=== PATIENT | female | born 1985 | race American Indian/Alaskan Native ===

== ENCOUNTER 2021-05-03 22:58 | Inpatient (IN) | payer SELFPAY ==
[2021-05-03] MEDS ORDERED: LORazepam 2 MG/ML VIAL ONE ×2 (23:12→23:43)
[2021-05-03] MEDS ORDERED: LORazepam 2 MG/ML VIAL IM ONE ×2 (23:25→23:32)
[2021-05-03] MEDS ORDERED: KETAMINE 500 MG/5 ML VIAL MDV ONE (23:35)
[2021-05-03] MEDS ORDERED: KETAMINE 500 MG/5 ML VIAL MDV IM ONE (23:35)
[2021-05-03] MEDS ORDERED: MAGNESIUM SULFATE 40GM/1000ML 40 GM/1,000 ML BAG IV SCH (23:45)
[2021-05-03] MEDS ORDERED: MAGNESIUM SULFATE 4 GM/100 ML BAG IV ONE (23:49)
[2021-05-04] MEDS ORDERED: SODIUM CHLORIDE 0.9% 1000 ML 2,000 ML ONE (00:01)
--- NOTE | 2021-05-04 00:40 | Emergency Department Report ---
<STUART PATRICK - Last Filed: 05/04/21 01:35> ED Seizure HPI - General Chief Complaint: Seizure Stated Complaint: Eclampsia Time Seen by Provider: 05/03/21 23:19 Source: EMS Mode of arrival: Stretcher Limitations: No Limitations - History of Present Illness Initial Comments: 35-year-old female G6, P5 presents to the hospital 1 week with seizure. Upon arrival patient is seizing with a EMS therefore history obtained from EMS. They states that patient delivered at [facility] and did not have any care. She had preeclampsia at time of delivery. She is not currently on any medications. She had 1 seizure at home witnessed by family. She was postictal upon EMS arrival. Patient was alert and oriented with GCS of 15 by time of ED arrival but seized shortly after ED arrival. No IV access was obtained in route. Patient was administered 2 mg of intranasal Ativan by transporting ambulance crew and transferred to a room for treatment. mom Cecily Zavala ay [phone] Per mom pt went to the hospital because her water broke. she is unsure if pt had care. she showed evidence of preeclampisia after delivery (not before) so they kept her an extra day. Pt had an epidural and was having headache in the occipital and neck area. Pt had persistent headache since. Pt had her first seizure today witness. No previous history of seizures. - Related Data Allergies Allergy/AdvReac Type Severity Reaction Status Date / Time latex Allergy Hives Verified 05/03/21 23:09 ED Review of Systems Comment: Unobtainable due to pts medical conditions ED Past Medical Hx - Past Medical History Previous Medical History?: No ED Physical Exam - General Limitations: No Limitations - Other Other exam information: General: No acute distress Head: Atraumatic Eyes: normal appearance ENT: Moist mucous membranes Neck: Normal appearance, no midline tenderness Chest: Clear to auscultation bilaterally CV: Regular rate and rhythm Abdomen: Soft, normal bowel sounds, nontender, nondistended, no rebound or guarding Back: Normal inspection Extremity: Normal inspection, full range of motion Neuro: Patient have a tonic-clonic seizures upon arrival followed by postictal postictal state with extreme combativeness. 5/5 upper lower extremity strength Psych: Appropriate behavior Skin: No rash ED Course - Reevaluation(s) Reevaluation #1: 05/04/21 00:38 I greeted EMS at the door during patient's seizure activity and instructed them to administer 2 mg of intranasal Ativan. Patient was immediately transferred to the room and was extremely combative requiring multiple people to restrain her in multiple physical restraints. She was administered an additional Ativan 2 mg IM without significant sedation. Multiple IV attempts failed due to patient's body habitus and combativeness. Patient received ketamine IM with gradual sedation achieved. During this time peripheral IV access was placed in the left hand. Right EJ was attempted prior to ketamine however, it infiltrated. Left EJ was placed after ketamine with return of blood however, with IV infusion it appeared to be infiltrated. Patient systolic blood pressure also dropped in the 80s therefore patient prepped for central line placement. Right femoral line placed for definitive IV access and aggressive IV fluid hydration. During femoral line placement patient's mental status improving and it was explained w here she was and why she is here. She apologized for her combative behavior and is very pleasant. I was at the bedside during patient's initial resuscitation efforts 05/04/21 01:27 Reevaluation #2: 05/04/21 01:17 room air sat 95% at rest - Consultations Consultation #1: 05/04/21 01:09 Discussed with TEXTILE SLITTING MACHINE OPERATOR on-call Dr. Lua who advises to add on a urine total protein and urine creatinine to requested UA to help differentiate between eclampsia versus primary seizure disorder. I informed him that patient is being treated for both until diagnosis is clear. Patient is awaiting CT head and urine collection. Case signed out to my colleague Dr. Cortes to follow-up results and recontact TEXTILE SLITTING MACHINE OPERATOR for admission. Patient may require hospitalist admission based on lack of staffing on the TEXTILE SLITTING MACHINE OPERATOR cesar, patient's COVID status, and if primary seizure disorder is favored over preeclampsia - Central Line Placement Right Femoral Consent Obtained: emergent situation Time Out Performed: Yes Patient Placed on Monitor/Pulse Ox: Yes MD Prep: mask, gown, gloves Central Line Prep: Chlorhexidine scrub, sterile drapes applied Local Anesthesia Used: Lidocaine 1% Amount of Anesthesia Used (mls): 5 Ultrasound Used for Placement: No Central Line Lumen Inserted: triple Reason for Insertion: Emergency Venous Access Bloods Obtained for Lab: No Central Line Position: good blood return, sutured in place with nyl Dressing Applied: Tegaderm Patient Tolerated Procedure: well - EJ/Peripheral Line Neck L Time Out Performed: Yes Indications: nurses unable to establis Skin Cleansed in Sterile Fashion: Yes Size: 20 Dressing Placed: Tegaderm Patient Tolerated Procedure: other (infiltrated) Neck R Time Out Performed: Yes Indications: nurses unable to establis Skin Cleansed in Sterile Fashion: Yes Size: 20 Patient Tolerated Procedure: other (infiltrated) ED Medical Decision Making - Lab Data Result diagrams: 05/04/21 00:07 05/04/21 00:07 - Radiology Data Radiology results: report reviewed CHEST 1 VIEW INDICATION / CLINICAL INFORMATION: multiple seizures. COMPARISON: None available. FINDINGS: SUPPORT DEVICES: None. HEART / MEDIASTINUM: No significant abnormality. LUNGS / PLEURA: Suboptimal inspiration. There are pulmonary opacities scattered throughout the right lung. I suspect there are pulmonary opacities within the left lung as well. No large pleural effusion. No pneumothorax. ADDITIONAL FINDINGS: No significant additional findings. IMPRESSION: 1. Scattered bilateral pulmonary opacities. Most likely etiology is viral pneumonia. Please correlate with patient's Covid status. - Medical Decision Making Patient required aggressive resuscitation and stabilization secondary to combativeness without IV access and seizure activity. I greeted EMS at the door during patient's seizure activity and instructed them to administer 2 mg of intranasal Ativan. Patient was immediately transferred to the room and was extremely combative requiring multiple people to restrain her in multiple physical restraints. She was administered an additional Ativan 2 mg IM without significant sedation. Multiple IV attempts failed due to patient's body habitus and combativeness. Patient received ketamine IM with gradual sedation achieved. During this time peripheral IV access was placed in the left hand. Right EJ was attempted prior to ketamine however, it infiltrated. Left EJ was placed after ketamine with return of blood however, with IV infusion it appeared to be infiltrated. Patient systolic blood pressure also dropped in the 80s therefore patient prepped for central line placement. Right femoral line placed for definitive IV access and aggressive IV fluid hydration. During femoral line placement patient's mental status improving and it was explained where she was and why she is here. She apologized for her combative behavior and is very pleasant. I was at the bedside during patient's prolonged resuscitation and stabilization efforts. Spoke to on-call TEXTILE SLITTING MACHINE OPERATOR MD and additional orders placed. He will be recounted by my colleague after pending orders result Blood pressure improved after IV fluid bolus and magnesium bolus and drip initiated. Patient satting 95% on room air although x-ray shows infiltrates with hx of covid. Patient treated with antibiotics for pneumonia. Patient does have an anion gap metabolic acidosis likely secondary to seizure activity. Lactic acid has been ordered. iv potassium ordered for mild hypokalemia at time of disposition ekg, urine collection and CT pending DR Cortes to follow and dispo Critical Care Time: Yes Critical care time in (mins) excluding proc time.: 75 Critical Care Time: 75 Minutes of critical care time excluding procedures were used in the care of the patient. I came immediately to the bedside upon patient's arrival. I obtained history from EMS at the bedside. I discussed treatment plan with the nursing team members. I reviewed electronic record (no previous record). I spoke with family to obtain medical history. Patient required multiple interventions and reassessments. Spoke with hospitalist and consultants in order to expedite care. ED Disposition Clinical Impression: Pre-eclampsia, , Hypokalemia, Elevated LFTs, Pneumonia due to COVID- 19 virus, Seizure, High anion gap metabolic acidosis Disposition: ADMITTED INPATIENT Condition: Serious Instructions: Bacterial Pneumonia (ED), Hypertension (ED) <CJ CORTES S - Last Filed: 05/04/21 05:39> ED Review of Systems ROS: Stated complaint: Eclampsia Other details as noted in HPI ED Course Vital Signs 05/03/21 05/03/21 05/03/21 20:53 21:00 21:15 Temperature Pulse Rate Respiratory 23 24 22 Rate Blood Pressure 109/70 109/70 116/56 Blood Pressure [Left] O2 Sat by Pulse 99 99 98 Oximetry 05/03/21 05/03/21 05/03/21 23:03 23:20 23:40 Temperature 98.3 F Pulse Rate 98 H 105 H Respiratory 16 26 H Rate Blood Pressure 116/56 116/56 Blood Pressure 140/60 [Left] O2 Sat by Pulse 98 86 Oximetry 05/03/21 05/04/21 05/04/21 23:46 00:00 00:15 Temperature Pulse Rate 120 H 116 H Respiratory 37 H 29 H Rate Blood Pressure 116/56 102/45 96/36 Blood Pressure [Left] O2 Sat by Pulse 100 100 100 Oximetry 05/04/21 05/04/21 05/04/21 00:30 00:46 01:01 Temperature Pulse Rate 104 H 110 H 105 H Respiratory 21 17 22 Rate Blood Pressure 96/36 95/41 105/46 Blood Pressure [Left] O2 Sat by Pulse 96 96 93 Oximetry 05/04/21 05/04/21 05/04/21 01:15 01:31 01:45 Temperature Pulse Rate 99 H 92 H 89 Respiratory 28 H 29 H 30 H Rate Blood Pressure 113/57 105/40 98/49 Blood Pressure [Left] O2 Sat by Pulse 92 94 91 Oximetry 05/04/21 05/04/21 05/04/21 02:01 02:15 02:31 Temperature Pulse Rate 86 82 74 Respiratory 27 H 27 H 25 H Rate Blood Pressure 94/46 94/46 101/52 Blood Pressure [Left] O2 Sat by Pulse 94 94 97 Oximetry 05/04/21 05/04/21 05/04/21 02:45 03:01 03:15 Temperature Pulse Rate 79 77 72 Respiratory 26 H 24 23 Rate Blood Pressure 100/47 100/47 100/47 Blood Pressure [Left] O2 Sat by Pulse 95 96 97 Oximetry 05/04/21 05/04/21 05/04/21 03:31 03:45 04:09 Temperature Pulse Rate 65 81 Respiratory 22 20 Rate Blood Pressure 114/47 104/52 111/50 Blood Pressure [Left] O2 Sat by Pulse 99 95 97 Oximetry 05/04/21 05/04/21 05/04/21 04:15 04:31 04:45 Temperature Pulse Rate 81 82 Respiratory 27 H 20 Rate Blood Pressure 111/50 102/50 102/50 Blood Pressure [Left] O2 Sat by Pulse 94 97 98 Oximetry 05/04/21 05/04/21 05/04/21 05:00 05:15 05:31 Temperature Pulse Rate 85 67 67 Respiratory 16 20 22 Rate Blood Pressure 96/72 96/72 98/52 Blood Pressure [Left] O2 Sat by Pulse 96 97 96 Oximetry ED Medical Decision Making - Lab Data Result diagrams: 05/04/21 00:07 05/04/21 00:07 Lab Results 05/03/21 05/04/21 05/04/21 Range/Units 02:45 00:07 00:07 WBC 10.7 (4.5-11.0) K/mm3 RBC 4.89 (3.65-5.03) M/mm3 Hgb 12.0 (10.1-14.3) gm/dl Hct 39.2 (30.3-42.9) % MCV 80 (79-97) fl MCH 25 L (28-32) pg MCHC 31 (30-34) % RDW 14.8 (13.2-15.2) % Plt Count 254 (140-440) K/mm3 Add Manual Diff Complete Total Counted 100 Seg Neuts % (Manual) 82.0 H (40.0-70.0) % Band Neutrophils % 3.0 % Lymphocytes % (Manual) 7.0 L (13.4-35.0) % Reactive Lymphs % (Man) 0 % Monocytes % (Manual) 8.0 H (0.0-7.3) % Eosinophils % (Manual) 0 (0.0-4.3) % Basophils % (Manual) 0 (0.0-1.8) % Metamyelocytes % 0 % Myelocytes % 0 % Promyelocytes % 0 % Blast Cells % 0 % Nucleated RBC % 1.0 H (0.0-0.9) % Seg Neutrophils # Man 8.8 H (1.8-7.7) K/mm3 Band Neutrophils # 0.3 K/mm3 Lymphocytes # (Manual) 0.7 L (1.2-5.4) K/mm3 Abs React Lymphs (Man) 0.0 K/mm3 Monocytes # (Manual) 0.9 H (0.0-0.8) K/mm3 Eosinophils # (Manual) 0.0 (0.0-0.4) K/mm3 Basophils # (Manual) 0.0 (0.0-0.1) K/mm3 Metamyelocytes # 0.0 K/mm3 Myelocytes # 0.0 K/mm3 Promyelocytes # 0.0 K/mm3 Blast Cells # 0.0 K/mm3 WBC Morphology Not Reportable Hypersegmented Neuts Not Reportable Hyposegmented Neuts Not Reportable Hypogranular Neuts Not Reportable Smudge Cells Not Reportable Toxic Granulation Not Reportable Toxic Vacuolation Not Reportable Dohle Bodies Not Reportable Pelger-Huet Anomaly Not Reportable Zane Rods Not Reportable Platelet Estimate Consistent w auto Clumped Platelets Not Reportable Plt Clumps, EDTA Not Reportable Large Platelets Few Giant Platelets Not Reportable Platelet Satelliting Not Reportable Plt Morphology Comment Not Reportable RBC Morphology Not Reportable Dimorphic RBCs Not Reportable Polychromasia Not Reportable Hypochromasia 1+ Poikilocytosis Not Reportable Anisocytosis 1+ Microcytosis Not Reportable Macrocytosis Not Reportable Spherocytes Not Reportable Pappenheimer Bodies Not Reportable Sickle Cells Not Reportable Target Cells Not Reportable Tear Drop Cells Not Reportable Ovalocytes Not Reportable Helmet Cells Not Reportable Jin-[place] Bodies Not Reportable [place] Rings Not Reportable Isabel Cells Not Reportable Bite Cells Not Reportable Crenated Cell Not Reportable Elliptocytes Not Reportable Acanthocytes (Spur) Not Reportable Rouleaux Not Reportable Hemoglobin C Crystals Not Reportable Schistocytes Not Reportable Malaria parasites Not Reportable Andrews Bodies Not Reportable Hem Pathologist Commnt No Sodium 141 (137-145) mmol/L Potassium 3.2 L (3.6-5.0) mmol/L Chloride 101.8 (98-107) mmol/L Carbon Dioxide 11 L (22-30) mmol/L Anion Gap 31 mmol/L BUN 11 (7-17) mg/dL Creatinine 0.9 (0.6-1.2) mg/dL Estimated GFR > 60 ml/min BUN/Creatinine Ratio 12 % Glucose 173 H (65-100) mg/dL Lactic Acid (0.7-2.0) mmol/L Uric Acid 8.7 H (3.5-7.6) mg/dL Calcium 8.2 L (8.4-10.2) mg/dL Magnesium (1.7-2.3) mg/dL Total Bilirubin 0.30 (0.1-1.2) mg/dL Direct Bilirubin < 0.2 (0-0.2) mg/dL Indirect Bilirubin 0.1 mg/dL AST 69 H (5-40) units/L ALT 81 H (7-56) units/L Alkaline Phosphatase 211 H (35-129) units/L Lactate Dehydrogenase 444 H (91-180) units/L Total Protein 7.3 (6.3-8.2) g/dL Albumin 3.4 L (3.9-5) g/dL Albumin/Globulin Ratio 0.9 % Urine Color Yellow (Yellow) Urine Turbidity Clear (Clear) Urine pH 5.0 (5.0-7.0) Ur Specific [place] 1.016 (1.003-1.030) Urine Protein 30 mg/dl (Negative) mg/dL Urine Glucose (UA) Neg (Negative) mg/dL Urine Ketones 20 (Negative) mg/dL Urine Blood Mod (Negative) Urine Nitrite Neg (Negative) Urine Bilirubin Neg (Negative) Urine Urobilinogen < 2.0 (<2.0) mg/dL Ur Leukocyte Esterase Neg (Negative) Urine WBC (Auto) 3.0 (0.0-6.0) /HPF Urine RBC (Auto) 4.0 (0.0-6.0) /HPF U Epithel Cells (Auto) 1.0 (0-13.0) /HPF Urine Mucus Few /HPF Urine Creatinine (0.1-20.0) mg/dL Urine Total Protein (5-11.8) mg/dL 05/04/21 05/04/21 05/04/21 Range/Units 00:07 01:14 02:45 WBC (4.5-11.0) K/mm3 RBC (3.65-5.03) M/mm3 Hgb (10.1-14.3) gm/dl Hct (30.3-42.9) % MCV (79-97) fl MCH (28-32) pg MCHC (30-34) % RDW (13.2-15.2) % Plt Count (140-440) K/mm3 Add Manual Diff Total Counted Seg Neuts % (Manual) (40.0-70.0) % Band Neutrophils % % Lymphocytes % (Manual) (13.4-35.0) % Reactive Lymphs % (Man) % Monocytes % (Manual) (0.0-7.3) % Eosinophils % (Manual) (0.0-4.3) % Basophils % (Manual) (0.0-1.8) % Metamyelocytes % % Myelocytes % % Promyelocytes % % Blast Cells % % Nucleated RBC % (0.0-0.9) % Seg Neutrophils # Man (1.8-7.7) K/mm3 Band Neutrophils # K/mm3 Lymphocytes # (Manual) (1.2-5.4) K/mm3 Abs React Lymphs (Man) K/mm3 Monocytes # (Manual) (0.0-0.8) K/mm3 Eosinophils # (Manual) (0.0-0.4) K/mm3 Basophils # (Manual) (0.0-0.1) K/mm3 Metamyelocytes # K/mm3 Myelocytes # K/mm3 Promyelocytes # K/mm3 Blast Cells # K/mm3 WBC Morphology Hypersegmented Neuts Hyposegmented Neuts Hypogranular Neuts Smudge Cells Toxic Granulation Toxic Vacuolation Dohle Bodies Pelger-Huet Anomaly Zane Rods Platelet Estimate Clumped Platelets Plt Clumps, EDTA Large Platelets Giant Platelets Platelet Satelliting Plt Morphology Comment RBC Morphology Dimorphic RBCs Polychromasia Hypochromasia Poikilocytosis Anisocytosis Microcytosis Macrocytosis Spherocytes Pappenheimer Bodies Sickle Cells Target Cells Tear Drop Cells Ovalocytes Helmet Cells Jin-[place] Bodies [place] Rings [place] Cells Bite Cells Crenated Cell Elliptocytes Acanthocytes (Spur) Rouleaux Hemoglobin C Crystals Schistocytes Malaria parasites Andrews Bodies Hem Pathologist Commnt Sodium (137-145) mmol/L Potassium (3.6-5.0) mmol/L Chloride (98-107) mmol/L Carbon Dioxide (22-30) mmol/L Anion Gap mmol/L BUN (7-17) mg/dL Creatinine (0.6-1.2) mg/dL Estimated GFR ml/min BUN/Creatinine Ratio % Glucose (65-100) mg/dL Lactic Acid 4.60 H* (0.7-2.0) mmol/L Uric Acid (3.5-7.6) mg/dL Calcium (8.4-10.2) mg/dL Magnesium 2.10 (1.7-2.3) mg/dL Total Bilirubin (0.1-1.2) mg/dL Direct Bilirubin (0-0.2) mg/dL Indirect Bilirubin mg/dL AST (5-40) units/L ALT (7-56) units/L Alkaline Phosphatase (35-129) units/L Lactate Dehydrogenase (91-180) units/L Total Protein (6.3-8.2) g/dL Albumin (3.9-5) g/dL Albumin/Globulin Ratio % Urine Color (Yellow) Urine Turbidity (Clear) Urine pH (5.0-7.0) Ur Specific [place] (1.003-1.030) Urine Protein (Negative) mg/dL Urine Glucose (UA) (Negative) mg/dL Urine Ketones (Negative) mg/dL Urine Blood (Negative) Urine Nitrite (Negative) Urine Bilirubin (Negative) Urine Urobilinogen (<2.0) mg/dL Ur Leukocyte Esterase (Negative) Urine WBC (Auto) (0.0-6.0) /HPF Urine RBC (Auto) (0.0-6.0) /HPF U Epithel Cells (Auto) (0-13.0) /HPF Urine Mucus /HPF Urine Creatinine 86.1 H (0.1-20.0) mg/dL Urine Total Protein 37 H (5-11.8) mg/dL 05/04/21 05/04/21 Range/Units 03:11 04:42 WBC (4.5-11.0) K/mm3 RBC (3.65-5.03) M/mm3 Hgb (10.1-14.3) gm/dl Hct (30.3-42.9) % MCV (79-97) fl MCH (28-32) pg MCHC (30-34) % RDW (13.2-15.2) % Plt Count (140-440) K/mm3 Add Manual Diff Total Counted Seg Neuts % (Manual) (40.0-70.0) % Band Neutrophils % % Lymphocytes % (Manual) (13.4-35.0) % Reactive Lymphs % (Man) % Monocytes % (Manual) (0.0-7.3) % Eosinophils % (Manual) (0.0-4.3) % Basophils % (Manual) (0.0-1.8) % Metamyelocytes % % Myelocytes % % Promyelocytes % % Blast Cells % % Nucleated RBC % (0.0-0.9) % Seg Neutrophils # Man (1.8-7.7) K/mm3 Band Neutrophils # K/mm3 Lymphocytes # (Manual) (1.2-5.4) K/mm3 Abs React Lymphs (Man) K/mm3 Monocytes # (Manual) (0.0-0.8) K/mm3 Eosinophils # (Manual) (0.0-0.4) K/mm3 Basophils # (Manual) (0.0-0.1) K/mm3 Metamyelocytes # K/mm3 Myelocytes # K/mm3 Promyelocytes # K/mm3 Blast Cells # K/mm3 WBC Morphology Hypersegmented Neuts Hyposegmented Neuts Hypogranular Neuts Smudge Cells Toxic Granulation Toxic Vacuolation Dohle Bodies Pelger-Huet Anomaly Zane Rods Platelet Estimate Clumped Platelets Plt Clumps, EDTA Large Platelets Giant Platelets Platelet Satelliting Plt Morphology Comment RBC Morphology Dimorphic RBCs Polychromasia Hypochromasia Poikilocytosis Anisocytosis Microcytosis Macrocytosis Spherocytes Pappenheimer Bodies Sickle Cells Target Cells Tear Drop Cells Ovalocytes Helmet Cells Jin-[place] Bodies [place] Rings Isabel Cells Bite Cells Crenated Cell Elliptocytes Acanthocytes (Spur) Rouleaux Hemoglobin C Crystals Schistocytes Malaria parasites Andrews Bodies Hem Pathologist Commnt Sodium (137-145) mmol/L Potassium (3.6-5.0) mmol/L Chloride (98-107) mmol/L Carbon Dioxide (22-30) mmol/L Anion Gap mmol/L BUN (7-17) mg/dL Creatinine (0.6-1.2) mg/dL Estimated GFR ml/min BUN/Creatinine Ratio % Glucose (65-100) mg/dL Lactic Acid 1.40 1.00 (0.7-2.0) mmol/L Uric Acid (3.5-7.6) mg/dL Calcium (8.4-10.2) mg/dL Magnesium (1.7-2.3) mg/dL Total Bilirubin (0.1-1.2) mg/dL Direct Bilirubin (0-0.2) mg/dL Indirect Bilirubin mg/dL AST (5-40) units/L ALT (7-56) units/L Alkaline Phosphatase (35-129) units/L Lactate Dehydrogenase (91-180) units/L Total Protein (6.3-8.2) g/dL Albumin (3.9-5) g/dL Albumin/Globulin Ratio % Urine Color (Yellow) Urine Turbidity (Clear) Urine pH (5.0-7.0) Ur Specific [place] (1.003-1.030) Urine Protein (Negative) mg/dL Urine Glucose (UA) (Negative) mg/dL Urine Ketones (Negative) mg/dL Urine Blood (Negative) Urine Nitrite (Negative) Urine Bilirubin (Negative) Urine Urobilinogen (<2.0) mg/dL Ur Leukocyte Esterase (Negative) Urine WBC (Auto) (0.0-6.0) /HPF Urine RBC (Auto) (0.0-6.0) /HPF U Epithel Cells (Auto) (0-13.0) /HPF Urine Mucus /HPF Urine Creatinine (0.1-20.0) mg/dL Urine Total Protein (5-11.8) mg/dL - EKG Data -: EKG Interpreted by Me EKG shows normal: sinus rhythm, axis, intervals, QRS complexes, ST-T waves Rate: normal - EKG Data When compared to previous EKG there are: previous EKG unavailable Interpretation: normal EKG - Radiology Data CT head/brain wo con INDICATION / CLINICAL INFORMATION: Post- Seizure. TECHNIQUE: Axial CT imaging of the brain was obtained without contrast. Coronal and sagittal reformatted imaging obtained and reviewed. All CT scans at this location are performed using CT dose reduction for ALARA by means of automated exposure control. COMPARISON: None available. FINDINGS: No intracranial hemorrhage, mass, or midline shift noted. No extra-axial fluid collection or suggestion of acute territorial infarction. Ventricular system and basilar cisterns are unremarkable. Visualized paranasal sinuses demonstrate very minimal mucosal thickening throughout the right maxillary antrum. No air-fluid levels. Calvarium is unremarkable. IMPRESSION: 1. No acute intracranial abnormality. 2. Minimal right maxillary mucosal thickening. - Medical Decision Making This patient was signed out to me by my colleague to follow-up on her EKG, urinalysis and CT of the head and then assist with disposition. CT of the head did not show any hemorrhage, large vessel occlusion, or any other acute process. EKG does not have any morphology consistent with ST elevation myocardial infarction. Urinalysis does not show any urinary tract infection. After these studies resulted, I spoke with the MAGISTERIAL DISTRICT JUDGE on-call, Dr. Vitale. He had ordered a urine creatinine and total urine protein level, and the results of these do appear consistent with preeclampsia. Therefore there is increased concern that the patient does have eclampsia given the seizures that occurred. However this case is slightly more complicated as the patient apparently was previously diagnosed with COVID. I did review her chest x-ray and it does appear consistent with what is seen with COVID-pneumonia with patchy bilateral infiltrates. Because of this, MAGISTERIAL DISTRICT JUDGE requested that the patient be admitted to the hospitalist service and they will consult on the patient. Dr Vitale asked for the patient to receive another 2 g bolus of magnesium and that the magnesium drip be placed at 2 g/h. The patient is to have a repeat magnesium level in about 4 to 6 hours. I spoke to the admitting hospitalist, Dr. Chavez, and he graciously has accepted admission to his service. Critical care attestation.: If time is entered above; I have spent that time in minutes in the direct care of this critically ill patient, excluding procedure time. ED Disposition Is pt being admited?: Yes Time of Disposition: 05:39
[2021-05-04 00:45] LABS: Mean Corpuscular HGB Conc 31 % (30-34); Mean Corpuscular Volume 80 fl (79-97); Platelet Count 254 K/mm3 (140-440); Red Blood Count 4.89 M/mm3 (3.65-5.03); Red Cell Distribution Width 14.8 % (13.2-15.2)
[2021-05-04 00:46] LABS: Hematocrit 39.2 % (30.3-42.9)
[2021-05-04 00:54] LABS: Alanine Aminotransferase 81 units/L (7-56); Albumin 3.4 g/dL (3.9-5); BUN/Creatinine Ratio 12; Blood Urea Nitrogen 11 mg/dL (7-17); Calcium 8.2 mg/dL (8.4-10.2); Hemolysis Index 14
[2021-05-04 00:56] LABS: Bilirubin,Direct < 0.2 mg/dL (0-0.2)
[2021-05-04 00:57] LABS: Uric Acid 8.7 mg/dL (3.5-7.6)
[2021-05-04] MEDS ORDERED: SODIUM CHLORIDE 0.9% 1000 ML 1,000 ML IV ONE ×2 (00:58)
[2021-05-04] MEDS ORDERED: cefTRIAXone/NS 2 GM/100 ML 2 GM/100 ML BAG IV ONE (01:00)
[2021-05-04] MEDS ORDERED: AZITHROMYCIN/NS 500 MG/250 ML 500 MG/250 ML BAG IV ONE ×2 (01:00→04:20)
[2021-05-04] MEDS ORDERED: SODIUM CHLORIDE 0.9% 1000 ML IV SOLN IV ONE (01:00)
[2021-05-04] MEDS ORDERED: levETIRAcetam 1000 MG/NS 0.75% 1,000 MG/100 ML BAG IV ONE (01:02)
--- NOTE | 2021-05-04 01:05 | XRay Report ---
CHEST 1 VIEW INDICATION / CLINICAL INFORMATION: multiple seizures. COMPARISON: None available. FINDINGS: SUPPORT DEVICES: None. HEART / MEDIASTINUM: No significant abnormality. LUNGS / PLEURA: Suboptimal inspiration. There are pulmonary opacities scattered throughout the right lung. I suspect there are pulmonary opacities within the left lung as well. No large pleural effusion . No pneumothorax. ADDITIONAL FINDINGS: No significant additional findings. IMPRESSION: 1. Scattered bilateral pulmonary opacities. Most likely etiology is viral pneumonia. Please correlate with patient's Covid status. Signer Name: Maranda Bruce MD Signed: 05/04/2021 1:00 AM Workstation Name: [id number]
[2021-05-04 01:19] LABS: Band Neutrophils # (Manual) 0.3 K/mm3; Total Cells Counted 100
[2021-05-04 01:20] LABS: Anisocytosis 1+; Basophils % (Manual) 0 % (0.0-1.8); Eosinophils % (Manual) 0 % (0.0-4.3); Hypochromasia 1+; Large Platelets Few; Platelet Estimate Consistent w Auto
[2021-05-04] MEDS ORDERED: POTASSIUM CHLORIDE 20 MEQ 20 MEQ/100 ML BAG IV ONE (02:17)
[2021-05-04 03:06] LABS: Bilirubin,Urine NEG (Negative); Blood,Urine MOD (Negative); Color,Urine Yellow (Yellow); Mucus,Urine FEW /HPF; Urobilinogen,Urine < 2.0 mg/dL (<2.0)
[2021-05-04 03:15] LABS: Creatinine,Urine 86.1 mg/dL (0.1-20.0)
--- NOTE | 2021-05-04 04:21 | Cat Scan Report ---
CT head/brain wo con INDICATION / CLINICAL INFORMATION: Post- Seizure. TECHNIQUE: Axial CT imaging of the brain was obtained without contrast. Coronal and sagittal reformatted imaging obtained and reviewed. All CT scans at this location are performed using CT dose reduction for ALAR A by means of automated exposure control. COMPARISON: None available. FINDINGS: No intracranial hemorrhage, mass, or midline shift noted. No extra-axial fluid collection or suggesti on of acute territorial infarction. Ventricular system and basilar cisterns are unremarkable. Visualized paranasal sinuses demonstrate very minimal mucosal thickening throughout the right maxilla ry antrum. No air-fluid levels. Calvarium is unremarkable. IMPRESSION: 1. No acute intracranial abnormality. 2. Minimal right maxillary mucosal thickening. Signer Name: Maranda Bruce MD Signed: 05/04/2021 4:17 AM Workstation Name: [id number]
[2021-05-04] MEDS ORDERED: MAGNESIUM SULFATE 2 GM/50 ML BAG IV ONE (04:36)
[2021-05-04] MEDS ORDERED: ONDANSETRON 4 MG/2 ML INJ IV PRN (05:32)
[2021-05-04] MEDS ORDERED: MORPHINE 4 MG/1 ML INJ IV PRN (05:32)
[2021-05-04] MEDS ORDERED: MAGNESIUM HYDROXIDE (MOM) ORAL LIQD UDC PO PRN (05:32)
[2021-05-04] MEDS ORDERED: MORPHINE 2 MG/1 ML INJ IV PRN (05:32)
[2021-05-04] MEDS ORDERED: ACETAMINOPHEN 325 MG TAB PO PRN (05:32)
[2021-05-04] MEDS ORDERED: SODIUM CHLORIDE 0.9% 1000 ML 1,000 ML IV SCH (05:45)
--- NOTE | 2021-05-04 05:45 | History and Physical Report ---
History of Present Illness Date of examination: 05/04/21 Date of admission: 05/04/2021 Chief complaint: Seizure Disorder History of present illness: 35-year-old -[place] who is 1 week brought into the emergency room today by EMS for seizure disorder. Patient had a normal vaginal delivery at [facility] but did not have a care prior to her delivery. Patient was postictal upon arrival in the emergency room. According to information gathered from family, patient broke amniotic sac and was taken to [facility] where she had epidural. She has been having headache in the occipital region since the delivery. She was said to have been kept an extra day at the hospital to be closely monitored for the preeclampsia. She was not placed on any medications. Family was said to have witnessed 1 seizure episode prior to arrival of EMS. En route to the hospital patient had 2 mg of intranasal Ativan as IV access was not obtainable. Patient now appears alert and oriented and was able to give a concise history. She however states she feels fatigued. She has had some cough and shortness of breath over the past few days and was diagnosed with COVID just 5 days ago. She denies any sick contacts and no recent travel. She admits she has not been fully vaccinated against COVID-19. Upon arrival in the emergency room patient was given some Keppra in the ER and also placed on IV magnesium sulfate. Work-up in the emergency room labs reveals hypokalemia of 3.2, elevated liver enzymes and anion gap metabolic acidosis. Chest x-ray reveals: Scattered bilateral pulmonary opacities most likely viral pneumonia. CT scan of the head was unremarkable. [facility] on-call was consulted by the ER physician regarding patient's remote history of preeclampsia and the accompanying seizure today. Patient will be followed in consult. Past History Past Medical History: No medical history Past Surgical History: No surgical history Social history: no significant social history Family history: no significant family history Medications and Allergies Allergies Allergy/AdvReac Type Severity Reaction Status Date / Time latex Allergy Hives Verified 05/03/21 23:09 Active Meds: Active Medications Acetaminophen (Acetaminophen 325 Mg Tab) 650 mg PO Q6H PRN PRN Reason: Pain MILD(1-3)/Fever >100.5/MACHADO Dexamethasone (Dexamethasone 20 Mg/5 Ml Vial) 10 mg IV ONCE ONE Stop: 05/04/21 05:40 Dexamethasone (Dexamethasone 4 Mg/Ml Vial) 6 mg IV Q24H [facility] Heparin Sodium (Porcine) (Heparin 5,000 Unit/1 Ml Vial) 5,000 unit SUB-Q Q8HR [facility] Magnesium Sulfate (Magnesium Sulfate 40gm/1000ml) 40 gm in 1,000 mls @ 50 mls/hr IV DIRECT [facility] Last Admin: 05/04/21 01:47 Dose: 25 mls/hr Sodium Chloride (Nacl 0.9% 1000 Ml) 1,000 mls @ 125 mls/hr IV DIRECT [facility] Ceftriaxone Sodium (Rocephin/Ns 2 Gm/100 Ml) 2 gm in 100 mls @ 200 mls/hr IV Q24H [facility]; Protocol Azithromycin (Zithromax/Ns) 500 mg in 250 mls @ 250 mls/hr IV Q24H [facility]; Protocol Magnesium Hydroxide (Magnesium Hydroxide (Mom) Oral Liqd Udc) 30 ml PO Q4H PRN PRN Reason: Constipation Morphine Sulfate (Morphine 2 Mg/1 Ml Inj) 2 mg IV Q4H PRN PRN Reason: Pain, Moderate (4-6) Morphine Sulfate (Morphine 4 Mg/1 Ml Inj) 4 mg IV Q4H PRN PRN Reason: Pain , Severe (7-10) Ondansetron HCl (Ondansetron 4 Mg/2 Ml Inj) 4 mg IV Q8H PRN PRN Reason: Nausea And Vomiting Sodium Chloride (Sodium Chloride 0.9% 10 Ml Flush Syringe) 10 ml IV BID YOLY Sodium Chloride (Sodium Chloride 0.9% 10 Ml Flush Syringe) 10 ml IV PRN PRN PRN Reason: LINE FLUSH Review of Systems Constitutional: fatigue, no fever, no chills Ears, nose, mouth and throat: no nasal congestion, no sore throat Cardiovascular: no chest pain, no palpitations Respiratory: cough, shortness of breath Gastrointestinal: no abdominal pain, no nausea, no vomiting, no diarrhea Genitourinary Female: no pelvic pain, no flank pain, no dysuria Musculoskeletal: no neck pain, no low back pain Integumentary: no rash, no pruritis Neurological: seizures, no head injury, no headaches, no confusion Psychiatric: no anxiety, no depression Endocrine: no polyphagia, no polydipsia, no polyuria, no nocturia Exam - Constitutional Vitals: Temp Pulse Resp BP Pulse Ox 98.3 F 67 22 98/52 96 05/03/21 23:03 05/04/21 05:31 05/04/21 05:31 05/04/21 05:31 05/04/21 05:31 General appearance: Present: no acute distress, well-nourished, obese - EENT Eyes: Present: PERRL, EOM intact. Absent: scleral icterus ENT: hearing intact, clear oral mucosa, dentition normal - Neck Neck: Present: supple, normal ROM - Respiratory Respiratory effort: normal Respiratory: bilateral: rales - Cardiovascular Rhythm: regular Heart Sounds: Present: S1 & S2. Absent: gallop, systolic murmur, diastolic murmur, rub, click - Extremities Extremities: no ischemia, pulses intact, pulses symmetrical, No edema, normal temperature, normal color, Full ROM Peripheral Pulses: within normal limits - Abdominal General gastrointestinal: Present: soft, non-tender, non-distended, normal bowel sounds. Absent: mass - Integumentary Integumentary: Present: clear, warm, dry. Absent: rash - Musculoskeletal Musculoskeletal: strength equal bilaterally - Psychiatric Psychiatric: appropriate mood/affect, intact judgment & insight, memory intact, cooperative - Neurologic Neurologic: CNII-XII intact, no focal deficits, moves all extremities Results - Labs CBC & Chem 7: 05/04/21 00:07 05/04/21 00:07 Labs: Abnormal lab results 05/04/21 05/04/21 05/04/21 Range/Units 00:07 00:07 01:14 MCH 25 L (28-32) pg Seg Neuts % (Manual) 82.0 H (40.0-70.0) % Lymphocytes % (Manual) 7.0 L (13.4-35.0) % Monocytes % (Manual) 8.0 H (0.0-7.3) % Nucleated RBC % 1.0 H (0.0-0.9) % Seg Neutrophils # Man 8.8 H (1.8-7.7) K/mm3 Lymphocytes # (Manual) 0.7 L (1.2-5.4) K/mm3 Monocytes # (Manual) 0.9 H (0.0-0.8) K/mm3 Potassium 3.2 L (3.6-5.0) mmol/L Carbon Dioxide 11 L (22-30) mmol/L Glucose 173 H (65-100) mg/dL Lactic Acid 4.60 H* (0.7-2.0) mmol/L Uric Acid 8.7 H (3.5-7.6) mg/dL Calcium 8.2 L (8.4-10.2) mg/dL AST 69 H (5-40) units/L ALT 81 H (7-56) units/L Alkaline Phosphatase 211 H (35-129) units/L Lactate Dehydrogenase 444 H (91-180) units/L Albumin 3.4 L (3.9-5) g/dL Urine Creatinine (0.1-20.0) mg/dL Urine Total Protein (5-11.8) mg/dL 05/04/21 Range/Units 02:45 MCH (28-32) pg Seg Neuts % (Manual) (40.0-70.0) % Lymphocytes % (Manual) (13.4-35.0) % Monocytes % (Manual) (0.0-7.3) % Nucleated RBC % (0.0-0.9) % Seg Neutrophils # Man (1.8-7.7) K/mm3 Lymphocytes # (Manual) (1.2-5.4) K/mm3 Monocytes # (Manual) (0.0-0.8) K/mm3 Potassium (3.6-5.0) mmol/L Carbon Dioxide (22-30) mmol/L Glucose (65-100) mg/dL Lactic Acid (0.7-2.0) mmol/L Uric Acid (3.5-7.6) mg/dL Calcium (8.4-10.2) mg/dL AST (5-40) units/L ALT (7-56) units/L Alkaline Phosphatase (35-129) units/L Lactate Dehydrogenase (91-180) units/L Albumin (3.9-5) g/dL Urine Creatinine 86.1 H (0.1-20.0) mg/dL Urine Total Protein 37 H (5-11.8) mg/dL Assessment and Plan - Patient Problems (1) Pneumonia due to COVID-19 virus Current Visit: Yes Status: Acute Plan to address problem: Patient admitted and placed on isolation precautions. Patient started on IV steroid. We will place consult to infectious disease for evaluation. (2) Elevated LFTs Current Visit: Yes Status: Acute Plan to address problem: Possibly related to the COVID 19 infection versus recent childbirth. However, will check hepatitis profile and consult gastroenterology for recomme ndations. (3) High anion gap metabolic acidosis Current Visit: Yes Status: Acute Plan to address problem: Patient placed on IV fluid. Will monitor chemistry. (4) Hypokalemia Current Visit: Yes Status: Acute Plan to address problem: Potassium will be repleted and will monitor chemistry. (5) Pre-eclampsia, Current Visit: Yes Status: Acute Plan to address problem: Patient will be closely monitored. Will place on seizure precautions. Patient currently on magnesium sulfate drip. [facility] consulted. (6) Seizure Current Visit: Yes Status: Acute Plan to address problem: Patient placed on seizure precautions. Patient has no known history of seizure disorder. Possibly related to the preeclampsia. We will place consult to neurology for recommendations. (7) DVT prophylaxis Current Visit: Yes Status: Acute Plan to address problem: Patient placed on subcutaneous heparin. (8) Full code status Current Visit: Yes Status: Acute Plan to address problem: Patient is a full code.
[2021-05-04 06:38] LABS: Hepatitis C Virus Antibody Non-Reactive (NonReactive)
[2021-05-04] MEDS ORDERED: dexAMETHasone 4 MG/ML VIAL IV ONE (06:39)
[2021-05-04 06:48] LABS: Hepatitis B Surface Antigen Nonreactive (Negative)
[2021-05-04] MEDS: HEPARIN 5,000 UNIT/1 ML VIAL SUB-Q SCH ×2 (07:19→14:38)
[2021-05-04] MEDS ORDERED: cefTRIAXone/NS 2 GM/100 ML 2 GM/100 ML BAG IV SCH (10:00)
[2021-05-04] MEDS ORDERED: AZITHROMYCIN/NS 500 MG/250 ML 500 MG/250 ML BAG IV SCH (10:00)
--- NOTE | 2021-05-04 10:25 | Consultation ---
History of Present Illness - Reason for Consult Consult date: 05/04/21 Abnormal LFTs Requesting physician: MOISÉS MARQUIS - History of Present Illness Mr. 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 She was brought to the emergency room with seizures, 1 week . She was noted to have abnormal liver enzymes and GI consultation is obtained. Currently, patient is awake and alert. She denies any discomfort. She denies any known history of liver disease. She states that she was at [facility] last week for her delivery and she was kept an extra day because her initial blood pressure was elevated. She is not aware of any other problems with her . She denies alcohol abuse. There is no GI bleeding or bruising. She has no abdominal pain, nausea or vomiting. Past History Past Medical History: No medical history Past Surgical History: No surgical history Social history: no significant social history Family history: no significant family history Medications and Allergies Allergies Allergy/AdvReac Type Severity Reaction Status Date / Time latex Allergy Hives Verified 05/03/21 23:09 Active Meds: Active Medications Acetaminophen (Acetaminophen 325 Mg Tab) 650 mg PO Q6H PRN PRN Reason: Pain MILD(1-3)/Fever >100.5/MACHADO Dexamethasone (Dexamethasone 4 Mg/Ml Vial) 6 mg IV Q24H [facility] Heparin Sodium (Porcine) (Heparin 5,000 Unit/1 Ml Vial) 5,000 unit SUB-Q Q8HR [facility] Last Admin: 05/04/21 07:19 Dose: Not Given Magnesium Sulfate (Magnesium Sulfate 40gm/1000ml) 40 gm in 1,000 mls @ 50 mls/hr IV DIRECT [facility] Last Admin: 05/04/21 01:47 Dose: 25 mls/hr Sodium Chloride (Nacl 0.9% 1000 Ml) 1,000 mls @ 125 mls/hr IV DIRECT [facility] Ceftriaxone Sodium (Rocephin/Ns 2 Gm/100 Ml) 2 gm in 100 mls @ 200 mls/hr IV Q24HR [facility]; Protocol Azithromycin (Zithromax/Ns) 500 mg in 250 mls @ 250 mls/hr IV Q24HR [facility]; Protocol Magnesium Hydroxide (Magnesium Hydroxide (Mom) Oral Liqd Udc) 30 ml PO Q4H PRN PRN Reason: Constipation Morphine Sulfate (Morphine 2 Mg/1 Ml Inj) 2 mg IV Q4H PRN PRN Reason: Pain, Moderate (4-6) Morphine Sulfate (Morphine 4 Mg/1 Ml Inj) 4 mg IV Q4H PRN PRN Reason: Pain , Severe (7-10) Ondansetron HCl (Ondansetron 4 Mg/2 Ml Inj) 4 mg IV Q8H PRN PRN Reason: Nausea And Vomiting Sodium Chloride (Sodium Chloride 0.9% 10 Ml Flush Syringe) 10 ml IV BID [facility]OLY Sodium Chloride (Sodium Chloride 0.9% 10 Ml Flush Syringe) 10 ml IV PRN PRN PRN Reason: LINE FLUSH Review of Systems All systems: negative Exam - Constitutional Vitals: Temp Pulse Resp BP Pulse Ox 98.3 F 72 24 110/66 97 05/03/21 23:03 05/04/21 07:45 05/04/21 07:45 05/04/21 07:45 05/04/21 07:45 General appearance: Present: no acute distress - EENT Eyes: Present: PERRL, EOM intact ENT: hearing intact - Respiratory Respiratory effort: normal Respiratory: bilateral: CTA - Cardiovascular Rhythm: regular Heart Sounds: Present: S1 & S2 - Extremities Extremities: No edema - Abdominal General gastrointestinal: Present: soft, non-tender Results - Labs CBC & Chem 7: 05/04/21 00:07 05/04/21 00:07 Labs: Abnormal lab results 05/04/21 05/04/21 05/04/21 Range/Units 00:07 00:07 01:14 MCH 25 L (28-32) pg Seg Neuts % (Manual) 82.0 H (40.0-70.0) % Lymphocytes % (Manual) 7.0 L (13.4-35.0) % Monocytes % (Manual) 8.0 H (0.0-7.3) % Nucleated RBC % 1.0 H (0.0-0.9) % Seg Neutrophils # Man 8.8 H (1.8-7.7) K/mm3 Lymphocytes # (Manual) 0.7 L (1.2-5.4) K/mm3 Monocytes # (Manual) 0.9 H (0.0-0.8) K/mm3 Potassium 3.2 L (3.6-5.0) mmol/L Carbon Dioxide 11 L (22-30) mmol/L Glucose 173 H (65-100) mg/dL Lactic Acid 4.60 H* (0.7-2.0) mmol/L Uric Acid 8.7 H (3.5-7.6) mg/dL Calcium 8.2 L (8.4-10.2) mg/dL AST 69 H (5-40) units/L ALT 81 H (7-56) units/L Alkaline Phosphatase 211 H (35-129) units/L Lactate Dehydrogenase 444 H (91-180) units/L Albumin 3.4 L (3.9-5) g/dL Urine Creatinine (0.1-20.0) mg/dL Urine Total Protein (5-11.8) mg/dL 05/04/21 Range/Units 02:45 MCH (28-32) pg Seg Neuts % (Manual) (40.0-70.0) % Lymphocytes % (Manual) (13.4-35.0) % Monocytes % (Manual) (0.0-7.3) % Nucleated RBC % (0.0-0.9) % Seg Neutrophils # Man (1.8-7.7) K/mm3 Lymphocytes # (Manual) (1.2-5.4) K/mm3 Monocytes # (Manual) (0.0-0.8) K/mm3 Potassium (3.6-5.0) mmol/L Carbon Dioxide (22-30) mmol/L Glucose (65-100) mg/dL Lactic Acid (0.7-2.0) mmol/L Uric Acid (3.5-7.6) mg/dL Calcium (8.4-10.2) mg/dL AST (5-40) units/L ALT (7-56) units/L Alkaline Phosphatase (35-129) units/L Lactate Dehydrogenase (91-180) units/L Albumin (3.9-5) g/dL Urine Creatinine 86.1 H (0.1-20.0) mg/dL Urine Total Protein 37 H (5-11.8) mg/dL Assessment and Plan 1. Abnormal liver enzymeslikely related to eclampsia. Acute hepatitis serologies negative. Patient does not have evidence of HUS, or HELPP, or TTP. -Monitor liver enzymes and treat eclampsia. -Obtain right upper quadrant ultrasound.
--- NOTE | 2021-05-04 12:10 | Event Note ---
Date: 05/04/21 Second IMS visit today patient seen and examined no acute distress no hypoxia no abdominal pain no further seizures noted continue current management anticipate discharge in 24 hours if no further decompensation
[2021-05-04 12:22] LABS: INR 0.86 (0.87-1.13)
--- NOTE | 2021-05-04 12:57 | Consultation ---
History of Present Illness Consult date: 05/04/21 History of present illness: Consulted for Seizures Post 1 week. Also noted abnormal liver enzymes . The patient is being checked for COVID results pending . Past History Past Medical History: No medical history Past Surgical History: No surgical history Social history: no significant social history Family history: no significant family history Medications and Allergies Allergies Allergy/AdvReac Type Severity Reaction Status Date / Time latex Allergy Hives Verified 05/03/21 23:09 Active Meds: Active Medications Acetaminophen (Acetaminophen 325 Mg Tab) 650 mg PO Q6H PRN PRN Reason: Pain MILD(1-3)/Fever >100.5/MACHADO Dexamethasone (Dexamethasone 4 Mg/Ml Vial) 6 mg IV Q24H [facility] Heparin Sodium (Porcine) (Heparin 5,000 Unit/1 Ml Vial) 5,000 unit SUB-Q Q8HR [facility] Last Admin: 05/04/21 07:19 Dose: Not Given Magnesium Sulfate (Magnesium Sulfate 40gm/1000ml) 40 gm in 1,000 mls @ 50 mls/hr IV DIRECT [facility] Last Admin: 05/04/21 01:47 Dose: 25 mls/hr Sodium Chloride (Nacl 0.9% 1000 Ml) 1,000 mls @ 125 mls/hr IV DIRECT [facility] Ceftriaxone Sodium (Rocephin/Ns 2 Gm/100 Ml) 2 gm in 100 mls @ 200 mls/hr IV Q24HR [facility]; Protocol Last Admin: 05/04/21 10:13 Dose: 200 mls/hr Azithromycin (Zithromax/Ns) 500 mg in 250 mls @ 250 mls/hr IV Q24HR [facility]; Protocol Last Admin: 05/04/21 10:13 Dose: 250 mls/hr Magnesium Hydroxide (Magnesium Hydroxide (Mom) Oral Liqd Udc) 30 ml PO Q4H PRN PRN Reason: Constipation Morphine Sulfate (Morphine 2 Mg/1 Ml Inj) 2 mg IV Q4H PRN PRN Reason: Pain, Moderate (4-6) Morphine Sulfate (Morphine 4 Mg/1 Ml Inj) 4 mg IV Q4H PRN PRN Reason: Pain , Severe (7-10) Ondansetron HCl (Ondansetron 4 Mg/2 Ml Inj) 4 mg IV Q8H PRN PRN Reason: Nausea And Vomiting Sodium Chloride (Sodium Chloride 0.9% 10 Ml Flush Syringe) 10 ml IV BID [facility] Last Admin: 05/04/21 11:14 Dose: 10 ml Sodium Chloride (Sodium Chloride 0.9% 10 Ml Flush Syringe) 10 ml IV PRN PRN PRN Reason: LINE FLUSH Physical Examination - Vital Signs Vital Signs: Vital Signs Resp BP Pulse Ox 23 109/70 99 05/03/21 20:53 05/03/21 20:53 05/03/21 20:53 - Physical Exam Narrative exam: The patient was not examined today. Results - Laboratory Findings CBC and BMP: 05/04/21 00:07 05/04/21 00:07 Abnormal Lab Findings: Abnormal Labs 05/04/21 05/04/21 05/04/21 00:07 00:07 01:14 MCH 25 L Seg Neuts % (Manual) 82.0 H Lymphocytes % (Manual) 7.0 L Monocytes % (Manual) 8.0 H Nucleated RBC % 1.0 H Seg Neutrophils # Man 8.8 H Lymphocytes # (Manual) 0.7 L Monocytes # (Manual) 0.9 H INR Potassium 3.2 L Carbon Dioxide 11 L Glucose 173 H Lactic Acid 4.60 H* Uric Acid 8.7 H Calcium 8.2 L AST 69 H ALT 81 H Alkaline Phosphatase 211 H Lactate Dehydrogenase 444 H Albumin 3.4 L Urine Creatinine Urine Total Protein 05/04/21 05/04/21 02:45 11:39 MCH Seg Neuts % (Manual) Lymphocytes % (Manual) Monocytes % (Manual) Nucleated RBC % Seg Neutrophils # Man Lymphocytes # (Manual) Monocytes # (Manual) INR 0.86 L Potassium Carbon Dioxide Glucose Lactic Acid Uric Acid Calcium AST ALT Alkaline Phosphatase Lactate Dehydrogenase Albumin Urine Creatinine 86.1 H Urine Total Protein 37 H Assessment and Plan 1. New onset Seizures 1 week Post . This is a complex issue, she needs a comprehensive either inpatient or out patient neurological workup including EEG . 2. CT Brain is unremarkable . 3. If the patient reports MACHADO MRI Brain and MRV is recommended . 4. No Driving for now till evaluted by out patient neurology . 5. If Breast Feeding Avoid AEDs till she discusses with [facility] . 6. Call Back With Questions . Dr. Merary CORONA
--- NOTE | 2021-05-04 13:13 | Electrocardiograph Report ---
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
--- NOTE | 2021-05-04 13:16 | Ultrasound Report ---
ULTRASOUND ABDOMEN, LIMITED INDICATION / CLINICAL INFORMATION: Abnormal liver enzymes. COMPARISON: None available. FINDINGS: PANCREAS: Visualized portion shows no significant abnormality. AORTA: No significant abnormality. IVC: No significant abnormality. LIVER: The liver is enlarged measuring 18.1 cm with mildly heterogeneous appearance. Normal hepatoped al blood flow within the main portal vein. GALLBLADDER: No significant abnormality. BILE DUCTS: No significant abnormality. Common bile duct measures 3 mm. RIGHT KIDNEY: The right kidney measures 11.8 cm. No significant abnormality. FREE FLUID: None. ADDITIONAL FINDINGS: None. IMPRESSION: 1. Hepatomegaly with mildly heterogeneous appearance of the liver, most commonly seen with steatosis. Scribed by: Pura Niño RDMS, RVT Scribed: 05/04/2021 11:46 AM I have reviewed the images, agree with this report, and edited this report as needed. Signer Name: Geovanny Abernathy MD Signed: 05/04/2021 1:12 PM Workstation Name: [id number]
--- NOTE | 2021-05-04 13:27 | Consultation ---
History of Present Illness Consult date: 05/04/21 History of present illness: Eclampsia(includes LFT changes) resolving with MGSO4 and Ativan no Sequelae Recommendation: MGSO4 for 24 hours, DC home with Labetalol if BP>140/90. Graham Man MD Medications and Allergies Allergies Allergy/AdvReac Type Severity Reaction Status Date / Time latex Allergy Hives Verified 05/03/21 23:09 Active Meds: Active Medications Acetaminophen (Acetaminophen 325 Mg Tab) 650 mg PO Q6H PRN PRN Reason: Pain MILD(1-3)/Fever >100.5/MACHADO Dexamethasone (Dexamethasone 4 Mg/Ml Vial) 6 mg IV Q24H [facility] Heparin Sodium (Porcine) (Heparin 5,000 Unit/1 Ml Vial) 5,000 unit SUB-Q Q8HR [facility] Last Admin: 05/04/21 07:19 Dose: Not Given Magnesium Sulfate (Magnesium Sulfate 40gm/1000ml) 40 gm in 1,000 mls @ 50 mls/hr IV DIRECT [facility] Last Admin: 05/04/21 01:47 Dose: 25 mls/hr Sodium Chloride (Nacl 0.9% 1000 Ml) 1,000 mls @ 125 mls/hr IV DIRECT [facility] Ceftriaxone Sodium (Rocephin/Ns 2 Gm/100 Ml) 2 gm in 100 mls @ 200 mls/hr IV Q24HR [facility]; Protocol Last Admin: 05/04/21 10:13 Dose: 200 mls/hr Azithromycin (Zithromax/Ns) 500 mg in 250 mls @ 250 mls/hr IV Q24HR [facility]; Protocol Last Admin: 05/04/21 10:13 Dose: 250 mls/hr Magnesium Hydroxide (Magnesium Hydroxide (Mom) Oral Liqd Udc) 30 ml PO Q4H PRN PRN Reason: Constipation Morphine Sulfate (Morphine 2 Mg/1 Ml Inj) 2 mg IV Q4H PRN PRN Reason: Pain, Moderate (4-6) Morphine Sulfate (Morphine 4 Mg/1 Ml Inj) 4 mg IV Q4H PRN PRN Reason: Pain , Severe (7-10) Ondansetron HCl (Ondansetron 4 Mg/2 Ml Inj) 4 mg IV Q8H PRN PRN Reason: Nausea And Vomiting Sodium Chloride (Sodium Chloride 0.9% 10 Ml Flush Syringe) 10 ml IV BID [facility]Y Last Admin: 05/04/21 11:14 Dose: 10 ml Sodium Chloride (Sodium Chloride 0.9% 10 Ml Flush Syringe) 10 ml IV PRN PRN PRN Reason: LINE FLUSH - Vital Signs Vital signs: Vital Signs Resp BP Pulse Ox 23 109/70 99 05/03/21 20:53 05/03/21 20:53 05/03/21 20:53 Temp Pulse Resp BP Pulse Ox 98.3 F 72 24 110/66 97 05/03/21 23:03 05/04/21 07:45 05/04/21 07:45 05/04/21 07:45 05/04/21 07:45 Results Result Diagrams: 05/04/21 00:07 05/04/21 00:07 Abnormal lab results 05/04/21 05/04/21 05/04/21 Range/Units 00:07 00:07 01:14 MCH 25 L (28-32) pg Seg Neuts % (Manual) 82.0 H (40.0-70.0) % Lymphocytes % (Manual) 7.0 L (13.4-35.0) % Monocytes % (Manual) 8.0 H (0.0-7.3) % Nucleated RBC % 1.0 H (0.0-0.9) % Seg Neutrophils # Man 8.8 H (1.8-7.7) K/mm3 Lymphocytes # (Manual) 0.7 L (1.2-5.4) K/mm3 Monocytes # (Manual) 0.9 H (0.0-0.8) K/mm3 INR (0.87-1.13) Potassium 3.2 L (3.6-5.0) mmol/L Carbon Dioxide 11 L (22-30) mmol/L Glucose 173 H (65-100) mg/dL Lactic Acid 4.60 H* (0.7-2.0) mmol/L Uric Acid 8.7 H (3.5-7.6) mg/dL Calcium 8.2 L (8.4-10.2) mg/dL AST 69 H (5-40) units/L ALT 81 H (7-56) units/L Alkaline Phosphatase 211 H (35-129) units/L Lactate Dehydrogenase 444 H (91-180) units/L Albumin 3.4 L (3.9-5) g/dL Urine Creatinine (0.1-20.0) mg/dL Urine Total Protein (5-11.8) mg/dL 05/04/21 05/04/21 Range/Units 02:45 11:39 MCH (28-32) pg Seg Neuts % (Manual) (40.0-70.0) % Lymphocytes % (Manual) (13.4-35.0) % Monocytes % (Manual) (0.0-7.3) % Nucleated RBC % (0.0-0.9) % Seg Neutrophils # Man (1.8-7.7) K/mm3 Lymphocytes # (Manual) (1.2-5.4) K/mm3 Monocytes # (Manual) (0.0-0.8) K/mm3 INR 0.86 L (0.87-1.13) Potassium (3.6-5.0) mmol/L Carbon Dioxide (22-30) mmol/L Glucose (65-100) mg/dL Lactic Acid (0.7-2.0) mmol/L Uric Acid (3.5-7.6) mg/dL Calcium (8.4-10.2) mg/dL AST (5-40) units/L ALT (7-56) units/L Alkaline Phosphatase (35-129) units/L Lactate Dehydrogenase (91-180) units/L Albumin (3.9-5) g/dL Urine Creatinine 86.1 H (0.1-20.0) mg/dL Urine Total Protein 37 H (5-11.8) mg/dL All other labs normal.
--- NOTE | 2021-05-04 16:54 | Consultation ---
History of Present Illness - Reason for Consult Consult date: 05/04/21 - History of Present Illness 35-year-old female now 1 week presented to hospital for seizure disorder. She had a normal vaginal delivery at [facility] but no care prior to that. She also complained of headaches postdelivery. Diagnosed with eclampsia, found to have COVID-19 Afebrile since admission with a white count of 10.7. COVID-19 positive. Normal renal function. Elevated liver enzymes. Blood cultures no growth so far. Currently on ceftriaxone, azithromycin, dexamethasone. Not hypoxic, not on supplemental oxygen. Imaging personally reviewed: Chest x-ray: Scattered bilateral pulmonary opacities. Review of systems: Deferred to reduce to the risk of transmission of COVID-19 Past History Past Medical History: No medical history Past Surgical History: No surgical history Social history: no significant social history Family history: no significant family history Medications and Allergies Allergies Allergy/AdvReac Type Severity Reaction Status Date / Time latex Allergy Hives Verified 05/03/21 23:09 Active Meds: Active Medications Acetaminophen (Acetaminophen 325 Mg Tab) 650 mg PO Q6H PRN PRN Reason: Pain MILD(1-3)/Fever >100.5/MACHADO Dexamethasone (Dexamethasone 4 Mg/Ml Vial) 6 mg IV Q24H YOLY Heparin Sodium (Porcine) (Heparin 5,000 Unit/1 Ml Vial) 5,000 unit SUB-Q Q8HR YOLY Last Admin: 05/04/21 14:38 Dose: 5,000 unit Magnesium Sulfate (Magnesium Sulfate 40gm/1000ml) 40 gm in 1,000 mls @ 50 mls/hr IV DIRECT YOLY Last Admin: 05/04/21 01:47 Dose: 25 mls/hr Sodium Chloride (Nacl 0.9% 1000 Ml) 1,000 mls @ 125 mls/hr IV DIRECT YOLY Ceftriaxone Sodium (Rocephin/Ns 2 Gm/100 Ml) 2 gm in 100 mls @ 200 mls/hr IV Q24HR YOLY; Protocol Last Admin: 05/04/21 10:13 Dose: 200 mls/hr Azithromycin (Zithromax/Ns) 500 mg in 250 mls @ 250 mls/hr IV Q24HR YOLY; Protocol Last Admin: 05/04/21 10:13 Dose: 250 mls/hr Magnesium Hydroxide (Magnesium Hydroxide (Mom) Oral Liqd Udc) 30 ml PO Q4H PRN PRN Reason: Constipation Morphine Sulfate (Morphine 2 Mg/1 Ml Inj) 2 mg IV Q4H PRN PRN Reason: Pain, Moderate (4-6) Morphine Sulfate (Morphine 4 Mg/1 Ml Inj) 4 mg IV Q4H PRN PRN Reason: Pain , Severe (7-10) Ondansetron HCl (Ondansetron 4 Mg/2 Ml Inj) 4 mg IV Q8H PRN PRN Reason: Nausea And Vomiting Sodium Chloride (Sodium Chloride 0.9% 10 Ml Flush Syringe) 10 ml IV BID YOLY Last Admin: 05/04/21 11:14 Dose: 10 ml Sodium Chloride (Sodium Chloride 0.9% 10 Ml Flush Syringe) 10 ml IV PRN PRN PRN Reason: LINE FLUSH Physical Examination - Physical Exam Narrative exam: Physical exam deferred to reduce risk of transmission of COVID-19. Please refer to primary team's note. - Constitutional Vitals: Vital Signs Temp Pulse Resp BP Pulse Ox 98.3 F 64 27 H 157/89 99 05/03/21 23:03 05/04/21 16:45 05/04/21 16:45 05/04/21 16:45 05/04/21 16:45 Temperature -Last 24 Hours Temperature 98.3 F Results - Labs CBC & Chem 7: 05/04/21 00:07 05/04/21 00:07 Labs: Abnormal lab results 05/04/21 05/04/21 05/04/21 Range/Units 00:07 00:07 01:14 MCH 25 L (28-32) pg Seg Neuts % (Manual) 82.0 H (40.0-70.0) % Lymphocytes % (Manual) 7.0 L (13.4-35.0) % Monocytes % (Manual) 8.0 H (0.0-7.3) % Nucleated RBC % 1.0 H (0.0-0.9) % Seg Neutrophils # Man 8.8 H (1.8-7.7) K/mm3 Lymphocytes # (Manual) 0.7 L (1.2-5.4) K/mm3 Monocytes # (Manual) 0.9 H (0.0-0.8) K/mm3 INR (0.87-1.13) Potassium 3.2 L (3.6-5.0) mmol/L Carbon Dioxide 11 L (22-30) mmol/L Glucose 173 H (65-100) mg/dL Lactic Acid 4.60 H* (0.7-2.0) mmol/L Uric Acid 8.7 H (3.5-7.6) mg/dL Calcium 8.2 L (8.4-10.2) mg/dL AST 69 H (5-40) units/L ALT 81 H (7-56) units/L Alkaline Phosphatase 211 H (35-129) units/L Lactate Dehydrogenase 444 H (91-180) units/L Albumin 3.4 L (3.9-5) g/dL Urine Creatinine (0.1-20.0) mg/dL Urine Total Protein (5-11.8) mg/dL Coronavirus (PCR) (Negative) 05/04/21 05/04/21 05/04/21 Range/Units 02:45 09:02 11:39 MCH (28-32) pg Seg Neuts % (Manual) (40.0-70.0) % Lymphocytes % (Manual) (13.4-35.0) % Monocytes % (Manual) (0.0-7.3) % Nucleated RBC % (0.0-0.9) % Seg Neutrophils # Man (1.8-7.7) K/mm3 Lymphocytes # (Manual) (1.2-5.4) K/mm3 Monocytes # (Manual) (0.0-0.8) K/mm3 INR 0.86 L (0.87-1.13) Potassium (3.6-5.0) mmol/L Carbon Dioxide (22-30) mmol/L Glucose (65-100) mg/dL Lactic Acid (0.7-2.0) mmol/L Uric Acid (3.5-7.6) mg/dL Calcium (8.4-10.2) mg/dL AST (5-40) units/L ALT (7-56) units/L Alkaline Phosphatase (35-129) units/L Lactate Dehydrogenase (91-180) units/L Albumin (3.9-5) g/dL Urine Creatinine 86.1 H (0.1-20.0) mg/dL Urine Total Protein 37 H (5-11.8) mg/dL Coronavirus (PCR) Positive A (Negative) Assessment and Plan Cultures: Blood culture no growth so far COVID-19 PCR: Positive A/P: 35-year-old female no past medical history admitted with: #COVID-19: Not hypoxic, currently on room air. No need to acutely treat. #Bilateral pneumonia: Consistent with COVID-19, afebrile with normal white count and not hypoxic. 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 -If requiring supplemental oxygen, okay to start Remdesivir x5 days. Thank you for the consult, we will sign off. Please call for questions. Yohan Wagner MD [facility] ([facility] O: [phone] F: [phone]
[2021-05-05 04:40] LABS: Hematocrit 35.3 % (30.3-42.9); Hemoglobin 11.2 gm/dl (10.1-14.3); Mean Corpuscular HGB Conc 32 % (30-34); Mean Corpuscular Volume 79 fl (79-97); Platelet Count 249 K/mm3 (140-440); Red Blood Count 4.46 M/mm3 (3.65-5.03); Red Cell Distribution Width 14.9 % (13.2-15.2)
[2021-05-05 05:00] LABS: BUN/Creatinine Ratio 14; Blood Urea Nitrogen 10 mg/dL (7-17); Calcium 7.2 mg/dL (8.4-10.2); Hemolysis Index 16
[2021-05-05] MEDS ORDERED: dexAMETHasone 4 MG/ML VIAL IV SCH (06:00)
[2021-05-05 06:23] LABS: Basophils % (Manual) 0 % (0.0-1.8); Eosinophils % (Manual) 0 % (0.0-4.3); Hypochromasia 1+; Monocytes % (Manual) 0 % (0.0-7.3); Total Cells Counted 100
[2021-05-05 06:24] LABS: Ovalocytes Few
[2021-05-05 06:25] LABS: Large Platelets Few; Platelet Estimate Cons
[2021-05-05] MEDS: HEPARIN 5,000 UNIT/1 ML VIAL SUB-Q SCH ×2 (08:12→08:14)
[2021-05-05 08:19] VITALS: BP 138/86
--- NOTE | 2021-05-05 08:25 | Discharge Summary ---
Providers - Providers Date of Admission: 05/04/21 05:32 Attending physician: MOISÉS MARQUIS MD 05/04/21 01:09 Consult to Physician [CONS] Urgent Comment: Dr. Neely spoke with Dr. Hunt @ 0103 Consulting Provider: SEBLE HUNT Physician Instructions: Reason For Exam: suspected eclampsia 05/04/21 05:38 Consult to Physician [CONS] Routine Comment: Consulting Provider: OLESYA HARDEN Physician Instructions: Reason For Exam: COVID 19- PNEUMONIA 05/04/21 05:48 Consult to Physician [CONS] Routine Comment: Consulting Provider: ZUNILDA LUCAS Physician Instructions: Reason For Exam: Elevated liver enzymes 05/04/21 06:13 Consult to Physician [CONS] Routine Comment: Consulting Provider: ALINA VANEGAS Physician Instructions: Reason For Exam: Seizure disorder,H/O Pre-Eclampsia Primary care physician: PRINTER ASSISTANT Hospitalization Reason for admission: Preeclampsia Condition: Serious Hospital course: 35-year-old -[place] who is 1 week brought into the emergency room today by EMS for seizure disorder. Patient had a normal vaginal delivery at [facility] but did not have a pren ata care prior to her delivery. Patient was postictal upon arrival in the emergency room. According to information gathered from family, patient broke amniotic sac and was taken to [facility] where she had epidural. She has been having headache in the occipital region since the delivery. She was said to have been kept an extra day at the hospital to be closely monitored for the preeclampsia. She was not placed on any medications. Family was said to have witnessed 1 seizure episode prior to arrival of EMS. En route to the hospital patient had 2 mg of intranasal Ativan as IV access was not obtainable. Patient now appears alert and oriented and was able to give a concise history. She however states she feels fatigued. She has had some cough and shortness of breath over the past few days and was diagnosed with COVID just 5 days ago. She denies any sick contacts and no recent travel. She admits she has not been fully vaccinated against COVID-19. Upon arrival in the emergency room patient was given some Keppra in the ER and also placed on IV magnesium sulfate. Work-up in the emergency room labs reveals hypokalemia of 3.2, elevated liver enzymes and anion gap metabolic acidosis. Chest x-ray reveals: Scattered bilateral pulmonary opacities most likely viral pneumonia. CT scan of the head was unremarkable. SOCIAL MEDIA MARKETING MANAGER on-call was consulted by the ER physician regarding patient's remote history of preeclampsia and the accompanying seizure today. Patient will be followed in consult. 05/05: Patient seen and examined this morning clinically improved her blood pressure is stable nevertheless due to the fluctuation noted overnight I did discuss with the patient about giving her a prescription of labetalol but directions on how to take it and holding parameters. She is to keep a blood pressure diary. She is also to have a home oxygen evaluation prior to discharge. She does have a COVID positivity which she notes from prior admission at the other facility. She was seen by neurologist and recommended to have an extensive neuro work-up and because she is breast-feeding we will not be placed on any AEDs at this time. She is to avoid driving or operating motor vehicles until she sees her neurologist and I have discussed this with her according to the [place] law. (1) Pneumonia due to COVID-19 virus Current Visit: Yes Status: Acute Plan to address problem: Patient admitted and placed on isolation precautions. Patient started on IV steroid. We will place consult to infectious disease for evaluation. (2) Elevated LFTs Current Visit: Yes Status: Acute Plan to address problem: Possibly related to the COVID 19 infection versus recent childbirth. However, will check hepatitis profile and consult gastroenterology for recommendations. (3) High anion gap metabolic acidosis Current Visit: Yes Status: Acute Plan to address problem: Patient placed on IV fluid. Will monitor chemistry. (4) Hypokalemia Current Visit: Yes Status: Acute Plan to address problem: Potassium will be repleted and will monitor chemistry. (5) Pre-eclampsia, Current Visit: Yes Status: Acute Plan to address problem: Patient will be closely monitored. Will place on seizure precautions. Patient currently on magnesium sulfate drip. SOCIAL MEDIA MARKETING MANAGER consulted. (6) Seizure Current Visit: Yes Status: Acute Plan to address problem: Patient placed on seizure precautions. Patient has no known history of seizure disorder. Possibly related to the preeclampsia. We will place consult to neurology for recommendations. Disposition: HOME / SELF CARE / HOMELESS Final Discharge Diagnosis (Prints w/discharge instructions): Preeclampsia with hypertensive urgency Time spent for discharge: 35 minutes Core Measure Documentation - Palliative Care Palliative Care/ Comfort Measures: Not Applicable - Core Measures Any of the following diagnoses?: none Exam - Physical Exam Narrative exam: VITAL SIGNS: Reviewed. GENERAL: The patient appears normally developed, obese vital signs as documented. HEAD: No signs of head trauma. EYES: Pupils are equal. Extraocular motions intact. EARS: Hearing grossly intact. MOUTH: Oropharynx is normal. NECK: No adenopathy, no JVD. CHEST: Chest with clear breath sounds bilaterally. No wheezes, rales, or rhonchi. CARDIAC: Regular rate and rhythm. S1 and S2, without murmurs, gallops, or rubs. VASCULAR: No Edema. Peripheral pulses normal and equal in all extremities. ABDOMEN: Soft, non tender and non distended. No rebound or guarding, and no masses palpated. Bowel Sounds normal. MUSCULOSKELETAL: Good range of motion of all major joints. Extremities without clubbing, cyanosis or edema. NEUROLOGIC EXAM: Alert and oriented x 3 No focal sensory or strength deficits. Speech normal. Follows commands. PSYCHIATRIC: Mood normal. SKIN: detail exam as documented in skin assessment - Constitutional Vitals: Temp Pulse Resp BP Pulse Ox 98.3 F 56 L 16 138/86 99 05/03/21 23:03 05/05/21 03:00 05/05/21 03:00 05/05/21 08:16 05/05/21 08:16 Plan Activity: advance as tolerated, fall precautions Diet: low fat Special Instructions: record daily weights, record daily BP diary, other (weigh loss recommended) Durable Medical Equipment Needed Upon Discharge: other Care Plan Goals: MUST FOLLOW WITH NEUROLOGIST FLAKO FOR EEG and Seizure work up completion Plan of Treatment: Recommend weight loss Follow up with: PRIMARY MD BRANDON [Primary Care Provider] - 3-5 Days CONSUELO WHITE MD [Staff Physician] - 7 Days JOJO TEJEDA MD [Staff Physician] - 3 Days Prescriptions: dexAMETHasone [Dexamethasone] 8 mg PO DAILY #16 tab labetaloL [Labetalol 100mg TAB] 100 mg PO BID #30 tablet
--- NOTE | 2021-05-05 12:29 | Gastroenterology Progress Note ---
Assessment and Plan 1. GI: eclampsia with noted increased lft - diet as tolerated - follow labs - ok to dc from GI standpoint Subjective Date of service: 05/05/21 Interval history: - no specific complaints overnight Objective - Constitutional Vitals: Temp Pulse Resp BP Pulse Ox 98.3 F 56 L 16 138/86 99 05/03/21 23:03 05/05/21 03:00 05/05/21 03:00 05/05/21 08:16 05/05/21 08:16 General appearance: no acute distress - EENT Eyes: PERRL - Respiratory Respiratory: bilateral: CTA - Cardiovascular Rhythm: regular Heart Sounds: Present: S1 & S2 - Gastrointestinal General gastrointestinal: Present: soft, non-tender, non-distended - Labs CBC & Chem 7: 05/05/21 03:48 05/05/21 03:48 Labs: Laboratory Results - last 24 hr 05/04/21 05/05/21 05/05/21 09:02 03:48 03:48 WBC 8.9 RBC 4.46 Hgb 11.2 Hct 35.3 MCV 79 MCH 25 L MCHC 32 RDW 14.9 Plt Count 249 Add Manual Diff Complete Total Counted 100 Seg Neuts % (Manual) 76.0 H Band Neutrophils % 0 Lymphocytes % (Manual) 24.0 Reactive Lymphs % (Man) 0 Monocytes % (Manual) 0 Eosinophils % (Manual) 0 Basophils % (Manual) 0 Metamyelocytes % 0 Myelocytes % 0 Promyelocytes % 0 Blast Cells % 0 Nucleated RBC % Not Reportable Seg Neutrophils # Man 6.8 Band Neutrophils # 0.0 Lymphocytes # (Manual) 2.1 Abs React Lymphs (Man) 0.0 Monocytes # (Manual) 0.0 Eosinophils # (Manual) 0.0 Basophils # (Manual) 0.0 Metamyelocytes # 0.0 Myelocytes # 0.0 Promyelocytes # 0.0 Blast Cells # 0.0 WBC Morphology Not Reportable Hypersegmented Neuts Not Reportable Hyposegmented Neuts Not Reportable Hypogranular Neuts Not Reportable Smudge Cells Not Reportable Toxic Granulation Not Reportable Toxic Vacuolation Not Reportable Dohle Bodies Not Reportable Pelger-Huet Anomaly Not Reportable Zane Rods Not Reportable Platelet Estimate Cons Clumped Platelets Not Reportable Plt Clumps, EDTA Not Reportable Large Platelets Few Giant Platelets Not Reportable Platelet Satelliting Not Reportable Plt Morphology Comment Not Reportable RBC Morphology Not Reportable Dimorphic RBCs Not Reportable Polychromasia Not Reportable Hypochromasia 1+ Poikilocytosis Not Reportable Anisocytosis Not Reportable Microcytosis Not Reportable Macrocytosis Not Reportable Spherocytes Not Reportable Pappenheimer Bodies Not Reportable Sickle Cells Not Reportable Target Cells Not Reportable Tear Drop Cells Not Reportable Ovalocytes Few Helmet Cells Not Reportable Jin-Flanagan Bodies Not Reportable Ararat Rings Not Reportable Muddy Cells Not Reportable Bite Cells Not Reportable Crenated Cell Not Reportable Elliptocytes Not Reportable Acanthocytes (Spur) Not Reportable Rouleaux Not Reportable Hemoglobin C Crystals Not Reportable Schistocytes Not Reportable Malaria parasites Not Reportable Andrews Bodies Not Reportable Hem Pathologist Commnt No Sodium 143 Potassium 4.2 D Chloride 108.0 H Carbon Dioxide 21 L D Anion Gap 18 BUN 10 Creatinine 0.7 Estimated GFR > 60 BUN/Creatinine Ratio 14 Glucose 75 Calcium 7.2 L Coronavirus (PCR) Positive A
--- NOTE | 2021-05-07 09:07 | Consultation ---
History of Present Illness Consult date: 05/07/21 Reason for Consult: Seizure,post labor History of present illness: Seizure Disorder History of present illness: 35-year-old -Citizen Of [place] who is 1 week brought into the emergency room today by EMS for seizure disorder. Patient had a normal vaginal delivery at [facility] but did not have a care prior to her delivery. Patient was postictal upon arrival in the emergency room. According to information gathered from family, patient broke amniotic sac and was taken to [facility] where she had epidural. She has been having headache in the occipital region since the delivery. She was said to have been kept an extra day at the hospital to be closely monitored for the preeclampsia. She was not placed on any medications. Family was said to have witnessed 1 seizure episode prior to arrival of EMS. En route to the hospital patient had 2 mg of intranasal Ativan as IV access was not obtainable. Patient now appears alert and oriented and was able to give a concise history. She however states she feels fatigued. She has had some cough and shortness of breath over the past few days and was diagnosed with COVID just 5 days ago. She denies any sick contacts and no recent travel. She admits she has not been fully vaccinated against COVID-19. Upon arrival in the emergency room patient was given some Keppra in the ER and also placed on IV magnesium sulfate. Work-up in the emergency room labs reveals hypokalemia of 3.2, elevated liver enzymes and anion gap metabolic acidosis. Chest x-ray reveals: Scattered bilateral pulmonary opacities most likely viral pneumonia. CT scan of the head was unremarkable. PALEOBOTANIST on-call was consulted by the ER physician regarding patient's remote history of preeclampsia and the accompanying seizure today. Patient will be followed in consult. Past History Past Medical History: No medical history Past Surgical History: No surgical history Social history: no significant social history Family history: no significant family history Medications and Allergies Allergies Allergy/AdvReac Type Severity Reaction Status Date / Time latex Allergy Hives Verified 05/03/21 23:09 Active Meds: Active Medications Acetaminophen (Acetaminophen 325 Mg Tab) 650 mg PO Q6H PRN PRN Reason: Pain MILD(1-3)/Fever >100.5/MACHADO Dexamethasone (Dexamethasone 20 Mg/5 Ml Vial) 10 mg IV ONCE ONE Stop: 05/04/21 05:40 Dexamethasone (Dexamethasone 4 Mg/Ml Vial) 6 mg IV Q24H YOLY Heparin Sodium (Porcine) (Heparin 5,000 Unit/1 Ml Vial) 5,000 unit SUB-Q Q8HR YOLY Magnesium Sulfate (Magnesium Sulfate 40gm/1000ml) 40 gm in 1,000 mls @ 50 mls/hr IV DIRECT YOLY Last Admin: 05/04/21 01:47 Dose: 25 mls/hr Sodium Chloride (Nacl 0.9% 1000 Ml) 1,000 mls @ 125 mls/hr IV DIRECT YOLY Ceftriaxone Sodium (Rocephin/Ns 2 Gm/100 Ml) 2 gm in 100 mls @ 200 mls/hr IV Q24H YOLY; Protocol Azithromycin (Zithromax/Ns) 500 mg in 250 mls @ 250 mls/hr IV Q24H YOLY; Protocol Magnesium Hydroxide (Magnesium Hydroxide (Mom) Oral Liqd Udc) 30 ml PO Q4H PRN PRN Reason: Constipation Morphine Sulfate (Morphine 2 Mg/1 Ml Inj) 2 mg IV Q4H PRN PRN Reason: Pain, Moderate (4-6) Morphine Sulfate (Morphine 4 Mg/1 Ml Inj) 4 mg IV Q4H PRN PRN Reason: Pain , Severe (7-10) Ondansetron HCl (Ondansetron 4 Mg/2 Ml Inj) 4 mg IV Q8H PRN PRN Reason: Nausea And Vomiting Sodium Chloride (Sodium Chloride 0.9% 10 Ml Flush Syringe) 10 ml IV BID YOLY Sodium Chloride (Sodium Chloride 0.9% 10 Ml Flush Syringe) 10 ml IV PRN PRN PRN Reason: LINE FLUSH Review of Systems Constitutional: fatigue, no fever, no chills Ears, nose, mouth and throat: no nasal congestion, no sore throat Cardiovascular: no chest pain, no palpitations Respiratory: cough, shortness of breath Gastrointestinal: no abdominal pain, no nausea, no vomiting, no diarrhea Genitourinary Female: no pelvic pain, no flank pain, no dysuria Musculoskeletal: no neck pain, no low back pain Integumentary: no rash, no pruritis Neurological: seizures, no head injury, no headaches, no confusion Psychiatric: no anxiety, no depression Endocrine: no polyphagia, no polydipsia, no polyuria, no nocturia Exam - Constitutional Vitals: Temp Pulse Resp BP Pulse Ox 98.3 F 67 22 98/52 96 05/03/21 23:03 05/04/21 05:31 05/04/21 05:31 05/04/21 05:31 05/04/21 05:31 General appearance: Present: no acute distress, well-nourished, obese - EENT Eyes: Present: PERRL, EOM intact. Absent: scleral icterus ENT: hearing intact, clear oral mucosa, dentition normal - Neck Neck: Present: supple, normal ROM - Respiratory Respiratory effort: normal Respiratory: bilateral: rales - Cardiovascular Rhythm: regular Heart Sounds: Present: S1 & S2. Absent: gallop, systolic murmur, diastolic murmur, rub, click - Extremities Extremities: no ischemia, pulses intact, pulses symmetrical, No edema, normal temperature, normal color, Full ROM Peripheral Pulses: within normal limits - Abdominal General gastrointestinal: Present: soft, non-tender, non-distended, normal bowel sounds. Absent: mass - Integumentary Integumentary: Present: clear, warm, dry. Absent: rash - Musculoskeletal Musculoskeletal: strength equal bilaterally - Psychiatric Psychiatric: appropriate mood/affect, intact judgment & insight, memory intact, cooperative - Neurologic Neurologic: CNII-XII intact, no focal deficits, moves all extremities Results - Labs CBC & Chem 7: 05/04/21 00:07 05/04/21 00:07 Labs: Abnormal lab results 05/04/21 05/04/21 05/04/21 Range/Units 00:07 00:07 01:14 MCH 25 L (28-32) pg Seg Neuts % (Manual) 82.0 H (40.0-70.0) % Lymphocytes % (Manual) 7.0 L (13.4-35.0) % Monocytes % (Manual) 8.0 H (0.0-7.3) % Nucleated RBC % 1.0 H (0.0-0.9) % Seg Neutrophils # Man 8.8 H (1.8-7.7) K/mm3 Lymphocytes # (Manual) 0.7 L (1.2-5.4) K/mm3 Monocytes # (Manual) 0.9 H (0.0-0.8) K/mm3 Potassium 3.2 L (3.6-5.0) mmol/L Carbon Dioxide 11 L (22-30) mmol/L Glucose 173 H (65-100) mg/dL Lactic Acid 4.60 H* (0.7-2.0) mmol/L Uric Acid 8.7 H (3.5-7.6) mg/dL Calcium 8.2 L (8.4-10.2) mg/dL AST 69 H (5-40) units/L ALT 81 H (7-56) units/L Alkaline Phosphatase 211 H (35-129) units/L Lactate Dehydrogenase 444 H (91-180) units/L Albumin 3.4 L (3.9-5) g/dL Urine Creatinine (0.1-20.0) mg/dL Urine Total Protein (5-11.8) mg/dL 05/04/21 Range/Units 02:45 MCH (28-32) pg Seg Neuts % (Manual) (40.0-70.0) % Lymphocytes % (Manual) (13.4-35.0) % Monocytes % (Manual) (0.0-7.3) % Nucleated RBC % (0.0-0.9) % Seg Neutrophils # Man (1.8-7.7) K/mm3 Lymphocytes # (Manual) (1.2-5.4) K/mm3 Monocytes # (Manual) (0.0-0.8) K/mm3 Potassium (3.6-5.0) mmol/L Carbon Dioxide (22-30) mmol/L Glucose (65-100) mg/dL Lactic Acid (0.7-2.0) mmol/L Uric Acid (3.5-7.6) mg/dL Calcium (8.4-10.2) mg/dL AST (5-40) units/L ALT (7-56) units/L Alkaline Phosphatase (35-129) units/L Lactate Dehydrogenase (91-180) units/L Albumin (3.9-5) g/dL Urine Creatinine 86.1 H (0.1-20.0) mg/dL Urine Total Protein 37 H (5-11.8) mg/dL Past History Past Medical History: No medical history Past Surgical History: No surgical history Social history: no significant social history Family history: no significant family history Medications and Allergies Allergies Allergy/AdvReac Type Severity Reaction Status Date / Time latex Allergy Hives Verified 05/03/21 23:09 Home Medications Medication Instructions Recorded Confirmed Last Taken Type dexAMETHasone [Dexamethasone] 8 mg PO DAILY #16 tab 05/05/21 Unknown Rx labetaloL [Labetalol 100mg TAB] 100 mg PO BID #30 tablet 05/05/21 Unknown Rx Physical Examination - Vital Signs Vital Signs: Vital Signs Resp BP Pulse Ox 23 109/70 99 05/03/21 20:53 05/03/21 20:53 05/03/21 20:53 Results - Laboratory Findings CBC and BMP: 05/05/21 03:48 05/05/21 03:48 Abnormal Lab Findings: Abnormal Labs 05/04/21 05/04/21 05/04/21 00:07 00:07 01:14 MCH 25 L Seg Neuts % (Manual) 82.0 H Lymphocytes % (Manual) 7.0 L Monocytes % (Manual) 8.0 H Nucleated RBC % 1.0 H Seg Neutrophils # Man 8.8 H Lymphocytes # (Manual) 0.7 L Monocytes # (Manual) 0.9 H INR Potassium 3.2 L Chloride Carbon Dioxide 11 L Glucose 173 H Lactic Acid 4.60 H* Uric Acid 8.7 H Calcium 8.2 L AST 69 H ALT 81 H Alkaline Phosphatase 211 H Lactate Dehydrogenase 444 H Albumin 3.4 L Urine Creatinine Urine Total Protein Coronavirus (PCR) 05/04/21 05/04/21 05/04/21 02:45 09:02 11:39 MCH Seg Neuts % (Manual) Lymphocytes % (Manual) Monocytes % (Manual) Nucleated RBC % Seg Neutrophils # Man Lymphocytes # (Manual) Monocytes # (Manual) INR 0.86 L Potassium Chloride Carbon Dioxide Glucose Lactic Acid Uric Acid Calcium AST ALT Alkaline Phosphatase Lactate Dehydrogenase Albumin Urine Creatinine 86.1 H Urine Total Protein 37 H Coronavirus (PCR) Positive A 05/05/21 05/05/21 03:48 03:48 MCH 25 L Seg Neuts % (Manual) 76.0 H Lymphocytes % (Manual) Monocytes % (Manual) Nucleated RBC % Seg Neutrophils # Man Lymphocytes # (Manual) Monocytes # (Manual) INR Potassium Chloride 108.0 H Carbon Dioxide 21 L D Glucose Lactic Acid Uric Acid Calcium 7.2 L AST ALT Alkaline Phosphatase Lactate Dehydrogenase Albumin Urine Creatinine Urine Total Protein Coronavirus (PCR) Assessment and Plan Assessment and Plan - Patient Problems (1) Pneumonia due to COVID-19 virus Current Visit: Yes Status: Acute Plan to address problem: Patient admitted and placed on isolation precautions. Patient started on IV steroid. We will place consult to infectious disease for evaluation. (2) Elevated LFTs Current Visit: Yes Status: Acute Plan to address problem: Possibly related to the COVID 19 infection versus recent childbirth. However, will check hepatitis profile and consult gastroenterology for recommendations. (3) High anion gap metabolic acidosis Current Visit: Yes Status: Acute Plan to address problem: Patient placed on IV fluid. Will monitor chemistry. (4) Hypokalemia Current Visit: Yes Status: Acute Plan to address problem: Potassium will be repleted and will monitor chemistry. (5) Pre-eclampsia, Current Visit: Yes Status: Acute Plan to address problem: Patient will be closely monitored. Will place on seizure precautions. Patient currently on magnesium sulfate drip. PALEOBOTANIST consulted. (6) Seizure Current Visit: Yes Status: Acute Plan to address problem: Patient placed on seizure precautions. Patient has no known history of seizure disorder. Possibly related to the preeclampsia. We will place consult to neurology for recommendations. (7) DVT prophylaxis Current Visit: Yes Status: Acute Plan to address problem: Patient placed on subcutaneous heparin. (8) Full code status Current Visit: Yes Status: Acute Plan to address problem: Patient is a full code.
== END 2021-05-05 08:50 | disposition home or self-care (01) | DRG 776 ==
LOC: ED 22:58 → IMCU 05-04 05:32
PROVIDERS: ADMIT Internal Medicine Geriatric Medicine; ATTEND Internal Medicine
PROC: 06HM33Z Insertion of Infusion Device into Right Femoral Vein, Percutaneous Approach (ICD-10-PCS; principal; 2021-05-04)
DX: O98.53 Other viral diseases complicating the puerperium (principal); U07.1 COVID-19; J12.82 Pneumonia due to coronavirus disease 2019; E87.2 Acidosis; O68 Labor and delivery complicated by abnormality of fetal acid-base balance; O99.355 Diseases of the nervous system complicating the puerperium; O14.95 Unspecified pre-eclampsia, complicating the puerperium; E87.6 Hypokalemia; G40.909 Epilepsy, unspecified, not intractable, without status epilepticus; O16.5 Unspecified maternal hypertension, complicating the puerperium; I16.0 Hypertensive urgency
CPT/HCPCS: 36415; 70450; 71045; 76705; 80048; 80074; 80076; 81001; 82140; 82570; 83615; 83735; 84156; 84550; 85007; 85025; 85610; 87040; 93005; G0378; J3490; Q0162; J0456; J0696; J1100; J1644; J1953; J2060; J3475; J3480; J7030; U0003